=== PATIENT | male | born 1985 | race African-American/Black ===

== ENCOUNTER 2019-05-04 10:39 | Emergency (ER) | payer MEDICAID, OTHER ==
[~2019-05-04] VITALS: Ht 177.8 cm; Wt 70.0 kg
[2019-05-04] MEDS ORDERED: IBUPROFEN 800MG TABLET PO ONE (11:15)
[2019-05-04] MEDS ORDERED: ACETAMINOPHEN 500MG TABLET PO ONE (11:15)
[2019-05-04 13:03] VITALS: BP 120/78
== END 2019-05-04 13:03 | disposition home or self-care (01) ==
LOC: ER 10:39
DX: S09.8XXA Other specified injuries of head, initial encounter (principal); V49.59XA Passenger injured in collision with other motor vehicles in traffic accident, initial encounter; Y93.89 Activity, other specified; Y92.89 Other specified places as the place of occurrence of the external cause; Y99.8 Other external cause status
CPT/HCPCS: 99284